=== PATIENT | female | born 1945 | race Caucasian/White ===

== ENCOUNTER → 2016-05-10 | Outpatient (CLI) | payer OTHER ==
[2016-05-10 11:25] LABS: BILIRUBIN,URINE NEGATIVE (NEG); CLARITY,URINE CLEAR (CLEAR); GLUCOSE, URINE (UA) NEGATIVE (NEG); LEUKOCYTE ESTERASE ,URINE TRACE (NEG); NITRATE,URINE NEGATIVE (NEG); OCCULT BLOOD,URINE Trace-intact (NEG); PROTEIN,URINE NEGATIVE (NEG); UROBILINOGEN,URINE 0.2 EU/dL (0.2)
[2016-05-10 11:27] LABS: URINE SAMPLE TYPE CLEAN CATCH URINE
[2016-05-10 11:29] LABS: HEMOGLOBIN A1C 5.85 % (4.2-6.0); MEAN BLOOD GLUCOSE (CALC) 108.805 mg/dL
[2016-05-10 11:32] LABS: RBC,URINE 0-3 /hpf
[2016-05-10 11:33] LABS: BACTERIA,URINE MODERATE
== END ==
LOC: LAB 10:59
PROVIDERS: ATTEND Family Medicine
DX: R35.0 Frequency of micturition (principal); R73.09 Other abnormal glucose
CPT/HCPCS: 36415; 81001; 83036

== ENCOUNTER → 2016-05-14 | Outpatient (CLI) | payer OTHER | LOC: MMPC 09:00 | PROVIDERS: ATTEND Family Medicine | DX: E03.9 Hypothyroidism, unspecified (principal); F41.9 Anxiety disorder, unspecified; E78.5 Hyperlipidemia, unspecified; G60.9 Hereditary and idiopathic neuropathy, unspecified; L29.0 Pruritus ani; K21.9 Gastro-esophageal reflux disease without esophagitis | CPT/HCPCS: 99214 ==

== ENCOUNTER → 2016-05-16 | Outpatient (CLI) | payer OTHER ==
--- NOTE | 2016-05-16 16:24 | DI ---
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 Previous Exam: 02/09/2016. 3 views are submitted. The AP projection is a weightbearing view. The femoral component was intention ally positioned to correct the valgus deformity. The processes is articulates as intended. There is n o evidence of loosening of the prosthesis. Reading: Status post total replacement with no interval change. There is no evidence of loosening of the prost hetic device.
== END ==
LOC: ORTHO 14:14
PROVIDERS: ATTEND Orthopaedic Surgery
DX: Z47.1 Aftercare following joint replacement surgery (principal); Z96.651 Presence of right artificial knee joint
CPT/HCPCS: 73562; 99213

== ENCOUNTER → 2016-08-21 | Outpatient (CLI) | payer OTHER | LOC: MMPC 09:00 | PROVIDERS: ATTEND Family Medicine | DX: I10 Essential (primary) hypertension (principal); E78.5 Hyperlipidemia, unspecified; E03.9 Hypothyroidism, unspecified; F32.0 Major depressive disorder, single episode, mild; F41.1 Generalized anxiety disorder; G60.9 Hereditary and idiopathic neuropathy, unspecified; D50.0 Iron deficiency anemia secondary to blood loss (chronic) | CPT/HCPCS: 99214; G0463 ==

== ENCOUNTER → 2016-08-30 | Outpatient (CLI) | payer OTHER ==
[2016-08-30 10:53] LABS: HEMATOCRIT 40.9 % (37.0-47.0); HEMOGLOBIN 12.9 g/dL (12.0-16.0); MEAN CORPUSCULAR HEMOGLOBIN 25.7 PG (27-31); MEAN CORPUSCULAR HGB CONC 31.5 g/dL (33-37); MEAN CORPUSCULAR VOLUME 81.6 FL (81-99); MEAN PLATELET VOLUME 8.7 FL (7.4-12.2); RED BLOOD COUNT 5.01 10^6/uL (4.20-5.40)
[2016-08-30 11:03] LABS: CALCIUM 9.2 mg/dL (8.7-10.7); SERUM ALBUMIN 4.4 g/dL (3.5-4.8)
== END ==
LOC: LAB 10:37
PROVIDERS: ATTEND Family Medicine
DX: D50.0 Iron deficiency anemia secondary to blood loss (chronic) (principal); E03.9 Hypothyroidism, unspecified; E78.5 Hyperlipidemia, unspecified; G60.9 Hereditary and idiopathic neuropathy, unspecified; I10 Essential (primary) hypertension
CPT/HCPCS: 80053; 84443; 85027

== ENCOUNTER → 2016-09-03 | Outpatient (CLI) | payer OTHER | LOC: MMPC 11:11 | PROVIDERS: ATTEND Surgery | DX: Z80.0 Family history of malignant neoplasm of digestive organs (principal); Z86.010 Personal history of colon polyps; Z86.2 Personal history of diseases of the blood and blood-forming organs and certain disorders involving the immune mechanism | CPT/HCPCS: 99203; G0463 ==

== ENCOUNTER 2016-10-02 07:18 | Day surgery (SDC) | payer OTHER ==
[~2016-10-02 07:18] MED LIST: LIDOCAINE 2% VISCOUS(20 MG/1 ML) - 15 ML UD CUP PO ONE; LIDOCAINE W/ SODIUM BICARB 0.5 ML SYR ONE; Lactated Ringers 1,000 ML PRIMARY IV ONE; fentaNYL Inj 100 MCG/2 ML VIAL ONE
[2016-10-02] MEDS ORDERED: Fleet Enema 133ml RECTAL ONE (07:43)
--- NOTE | 2016-10-02 09:15 | GEN.OPNOTE ---
EGD / Colonoscopy Report Surgery Date: 10/02/16 Preoperative Diagnosis: Anemia. Personal history of colon polyps. Family history of colon cancer. Postoperative Diagnosis: Same. Probable gastritis. 2 small rectal polyps. Procedure: #1 esophagogastroduodenoscopy with biopsy. #2 complete colonoscopy with biopsy and destruction of 2 small rectal polyps. Surgeon: Gerardo Salinas MD Anesthesia Provider: Thanh Haddad CRNA Anesthesia Type: MAC Indications: See preoperative diagnosis. EGD Findings: Esophagus: [Normal] GE Junction : [Normal] Fundus : [Some cobblestoning and friability of the mucosa. Biopsies taken.] Body : [Normal] Prepyloric : [Mild erythema. Biopsies taken.] Small Intestine : [Normal] A lubricated flexible upper endoscope was inserted and passed through the esophagus and stomach into the duodenum. The duodenum and duodenal bulb were unremarkable. Pyloric channel was patent. There is some erythema in the antrum. Several biopsies were taken to rule out H. pylori and underlying gastritis. Hemostasis was assured. The scope was retroflexed. The fundus showed some cobblestoning and friability of the mucosa. Biopsies were taken. Hemostasis was assured. The scope was straightened. Air was aspirated. The scope was withdrawn into the distal esophagus. Biopsies were taken at and above the GE junction. Hemostasis was assured. The scope was withdrawn through the remainder of a normal-appearing esophagus and brought through the hypopharynx under suction completing that portion of the procedure. Colonoscopy Findings: Prep : [Very good] Cecum : [Normal] Ascending : [Normal] Transverse : [Normal] Sigmoid : [Scattered diverticuli] Rectum : [2 small polyps biopsied and destroyed] Digital Rectal Exam : [Mild hemorrhoidal tissue] A lubricated flexible colonoscope was inserted and passed to the blind end of the cecum. The blind end of the cecum and ileocecal valve were clearly seen. Air was aspirated as the scope was withdrawn. Other than scattered sigmoid diverticuli and 2 small rectal polyps for colonoscopy was normal without other polyps, tumors, neoplastic masses, infectious or inflammatory process. The 2 small rectal polyps were removed with a cold biopsy forceps. Hemostasis was assured. The scope was withdrawn completing the procedure. Patient tolerated procedure well without complication. She was taken to outpatient surgery in stable condition. Follow-up will be in my office on an as-needed basis. We will call the biopsy results when available and plan therapy and follow-up accordingly. Patient should have a colonoscopy every 5 years with her family history of colon cancer and personal history of colon polyps.
[2016-10-02 10:02] VITALS: TEMP 97
[2016-10-02 10:06] VITALS: RESP 16
== END 2016-10-02 09:35 | disposition home or self-care (01) ==
LOC: SDSC 07:18
PROVIDERS: ATTEND Surgery
DX: D64.9 Anemia, unspecified (principal); Z86.010 Personal history of colon polyps; Z80.0 Family history of malignant neoplasm of digestive organs; K62.1 Rectal polyp
CPT/HCPCS: 43239; 45380; J2704; J3010; J7120

== ENCOUNTER → 2016-10-24 | Outpatient (CLI) | payer OTHER | LOC: MMPC 09:00 | PROVIDERS: ATTEND Family Medicine | DX: L03.116 Cellulitis of left lower limb (principal) | CPT/HCPCS: 99213; G0463 ==

== ENCOUNTER → 2016-11-11 | Outpatient (CLI) | payer OTHER | LOC: MMPC 09:00 | PROVIDERS: ATTEND Physician Assistant Medical | DX: D17.23 Benign lipomatous neoplasm of skin and subcutaneous tissue of right leg (principal) | CPT/HCPCS: 99213; G0463 ==

== ENCOUNTER → 2016-11-29 | Outpatient (CLI) | payer OTHER ==
--- NOTE | 2016-11-29 15:30 | DI ---
XR KNEE 3 VW,11/29/2016 10:04 AM: Clinical History: Right total knee arthroplasty. Previous Exam: May 16, 2016 Findings: 3 views of the right knee are obtained, and demonstrate stable postsurgical changes consistent with r ight total knee arthroplasty. There is no fracture. Alignment is anatomic. There is no hardware loose nayan. Impression: Stable right total knee arthroplasty.
== END ==
LOC: ORTHO 10:16
PROVIDERS: ATTEND Orthopaedic Surgery
DX: Z09 Encounter for follow-up examination after completed treatment for conditions other than malignant neoplasm (principal); Z96.651 Presence of right artificial knee joint; Z98.890 Other specified postprocedural states
CPT/HCPCS: 73562